=== PATIENT | female | born 1930 | race Caucasian/White ===

== ENCOUNTER 2017-05-13 21:50 | Emergency (ER) | payer BC ==
[~2017-05-13 21:50] MED LIST: ASPEC81 PO; DILT120C50 PO; LEVO-459 PO; LEVO75TA PO; LNX125 PO; LSX40 PO; METO25TA56 PO; ZCR80 PO
[2017-05-13 21:55] VITALS: TEMP 36.3; Ht 154.9 cm
[2017-05-14 00:12] LABS: BASO % 0.6 %; BASO ABS # 0.04 K/uL (0-0.2); COMPLETE YES; EOS % 1.7 %; HEMATOCRIT 33.4 % (37-47); IG% 0.3 %; LYMPH % 15.3 %; LYMPH ABS # 0.99 K/uL (1.2-3.4); MEAN CELL VOLUME 84.8 fL (80-100); MEAN CORPUSCULAR HEMOGLOBIN 25.1 pg (25-34); MEAN CORPUSCULAR HGB CONC 29.6 g/dl (32-36); MEAN PLATELET VOLUME 10.1 fL (7.4-10.4); MONO % 12.5 %; NEUT % 69.6 %; PLATELET COUNT 212 K/uL (130-400); RED BLOOD COUNT 3.94 M/uL (4.2-5.4); WHITE BLOOD COUNT 6.49 K/uL (4.8-10.8)
[2017-05-14 00:30] LABS: ALT/SGPT 26 U/L (12-78); AST/SGOT 30 U/L (15-37); BLOOD UREA NITROGEN 34 mg/dl (7-18); BUN/CREATININE RATIO 32.2 (10-20); CALCIUM 8.5 mg/dl (8.5-10.1); CARBON DIOXIDE 24 mmol/L (21-32); CHLORIDE 107 mmol/L (98-107); CREATININE 1.07 mg/dl (0.60-1.20); GLUCOSE 104 mg/dl (70-99); POTASSIUM 4.7 mmol/L (3.5-5.1); SODIUM 137 mmol/L (136-145)
[2017-05-14 00:35] LABS: ALB/GLOB RATIO 0.9 (0.9-2); ALKALINE PHOSPHATASE 78 U/L (45-117)
[2017-05-14] MEDS ORDERED: OPTIRAY 320 IV PRN (00:45)
--- NOTE | 2017-05-14 00:51 | EMERGENCY ROOM VISIT NOTE ---
History Report prepared by Vince: Stefany Schroeder Under the Supervision of: Dr. Sanjana Melton D.O. First contact with patient: 22:51 Chief Complaint: ABDOMINAL PAIN Stated Complaint: TORSO PAIN Nursing Triage Summary: per family member, "she has dementia and she is stating she cannot walk or move because both sides of her abd hurt" PT also states she fell yesterday on porch. PT O2 dependent at 2-3 liters via N/C. PT afebrile upon arrival at this time denies any nausea or vomiting. History of Present Illness The patient is a 86 year old female who presents to the Emergency Room with complaints of constant abdominal pain beginning yesterday. The patient notes that her pain worsens with movement. The patient notes having abdominal pain like this two weeks ago. She reports chronic chest pain and shortness of breath from mitral regurgitation. She follows up with a miller head assistant wet process and was last seen by him a week ago. The patient has a history of dementia and she lives with her son. The patient's son denies any acute decline in the patient's mental status. Pt denies headache, change in vision, fevers, nausea, vomiting, diarrhea, pain with urination, and melena. Source of History: patient Onset: yesterday Position: abdomen Timing: constant Modifying Factors (Worsening): movement Associated Symptoms: + chest pain, + SOB, + abdominal pain, No fevers, No headache, No nausea, No vomiting, No diarrhea, No urinary symptoms Review of Systems See HPI for pertinent positives & negatives. A total of 10 systems reviewed and were otherwise negative. Past Medical & Surgical Medical Problems: (1) Afib (2) Atrial fibrillation with RVR (3) Breast cancer (4) CHF (congestive heart failure) (5) HLD (hyperlipidemia) (6) HTN (hypertension) (7) Hypokalemia (8) Premature beats (9) Pulmonary hypertension (10) Syncope (11) Valvular disease Surgical Problems: (1) H/O mastectomy Family History No pertinent family history Social History Smoking Status: Never Smoker Alcohol Use: none Marital Status: Occupation Status: retired Current/Historical Medications Scheduled Aspirin (Aspirin EC Low Dose), 81 MG PO QAM Digoxin (Digoxin), 0.125 MG PO Q2D Diltiazem HCl (Diltiazem Cd), 120 MG PO QAM Furosemide (Furosemide), 40 MG PO BID17 Levofloxacin (Levaquin), 500 MG PO DAILY Levothyroxine Sodium (Synthroid), 75 MCG PO DAILY Metoprolol Tartrate (Lopressor) (Lopressor), 25 MG PO BID Simvastatin (Simvastatin), 20 MG PO HS Allergies Coded Allergies: No Known Allergies (Unverified , 11/02/15) Physical Exam Vital Signs Date Time Temp Pulse Resp B/P (MAP) Pulse Ox O2 Delivery O2 Flow Rate FiO2 05/14/17 02:47 84 16 137/76 95 05/14/17 02:00 81 16 130/76 95 Nasal Cannula 2.0 05/13/17 23:55 84 16 140/78 96 Nasal Cannula 2.0 05/13/17 23:29 88 05/13/17 22:46 83 05/13/17 21:55 36.3 71 18 145/76 96 Nasal Cannula 3.0 Physical Exam GENERAL: alert, well appearing, pleasantly demented, well nourished, no distress , non-toxic EYE EXAM: normal conjunctiva, PERRL and EOM's grossly intact OROPHARYNX: no exudate, no erythema, lips, buccal mucosa, and tongue normal and mucous membranes are moist NECK: supple, no nuchal rigidity, no adenopathy, non-tender LUNGS: Clear to auscultation. Normal chest wall mechanics HEART: no murmurs, S1 normal and S2 normal ABDOMEN: LUQ pain with paplation but otherwise abdomen is soft, non-tender, normo-active bowel sounds, no masses, no rebound or guarding. BACK: Back is symmetrical on inspection and there is no deformity, no midline tenderness, no CVA tenderness. SKIN: no rashes and no bruising UPPER EXTREMITIES: upper extremities are grossly normal. LOWER EXTREMITIES: No pitting edema. NEURO EXAM: Normal sensorium, cranial nerves II-XII grossly intact, normal speech, no gross weakness of arms, no gross weakness of legs. Medical Decision & Procedures ER Provider Diagnostic Interpretation: Chest X-ray interpreted to me: no cardiomegaly, small right pleural effusion, no wide mediastinum, no focal infiltrate unchanged from prior. Radiology results have been interpreted by the radiologist and reviewed by me. 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 SMA is opacified distally, likely via collaterals. No evidence of bowel ischemia. Lobulated mass in the posterior urinary bladder, suspicious for bladder neoplasm or less likely blood products. Recommend cystoscopy for further evaluation. Largest component measures approximately 2.5 cm abutting the posterior right wall. Cholelithiasis. Several subcentimeter hyperdensities in the kidneys are too small to characterize but likely cysts. Colonic diverticulosis without evidence of diverticulitis. Appendix is not seen. No right lower quadrant inflammatory changes to suggest appendicitis. Uterus surgically absent. Cardiomegaly. Scattered bibasilar atelectasis. Radiologist: Matt Duran MD. Laboratory Results 05/14/17 00:05 Red Blood Count 3.94, Mean Corpuscular Volume 84.8, Mean Corpuscular Hemoglobin 25.1, Mean Corpuscular Hemoglobin Concent 29.6, Mean Platelet Volume 10.1, Neutrophils (%) (Auto) 69.6, Lymphocytes (%) (Auto) 15.3, Monocytes (%) (Auto) 12.5, Eosinophils (%) (Auto) 1.7, Basophils (%) (Auto) 0.6, Neutrophils # (Auto ) 4.52, Lymphocytes # (Auto) 0.99, Monocytes # (Auto) 0.81, Eosinophils # (Auto ) 0.11, Basophils # (Auto) 0.04 05/14/17 00:05 Test 05/14/17 00:05 White Blood Count 6.49 K/uL (4.8-10.8) Red Blood Count 3.94 M/uL (4.2-5.4) Hemoglobin 9.9 g/dL (12.0-16.0) Hematocrit 33.4 % (37-47) Mean Corpuscular Volume 84.8 fL (80-100) Mean Corpuscular Hemoglobin 25.1 pg (25-34) Mean Corpuscular Hemoglobin Concent 29.6 g/dl (32-36) Platelet Count 212 K/uL (130-400) Mean Platelet Volume 10.1 fL (7.4-10.4) Neutrophils (%) (Auto) 69.6 % Lymphocytes (%) (Auto) 15.3 % Monocytes (%) (Auto) 12.5 % Eosinophils (%) (Auto) 1.7 % Basophils (%) (Auto) 0.6 % Neutrophils # (Auto) 4.52 K/uL (1.4-6.5) Lymphocytes # (Auto) 0.99 K/uL (1.2-3.4) Monocytes # (Auto) 0.81 K/uL (0.11-0.59) Eosinophils # (Auto) 0.11 K/uL (0-0.5) Basophils # (Auto) 0.04 K/uL (0-0.2) RDW Standard Deviation 57.9 fL (36.4-46.3) RDW Coefficient of Variation 18.9 % (11.5-14.5) Immature Granulocyte % (Auto) 0.3 % Immature Granulocyte # (Auto) 0.02 K/uL (0.00-0.02) Anion Gap 6.0 mmol/L (3-11) Estimated GFR () 54.4 Estimated GFR (Non- 47.0 BUN/Creatinine Ratio 32.2 (10-20) Lactic Acid Level 1.1 mmol/L (0.4-2.0) Calcium Level 8.5 mg/dl (8.5-10.1) Total Bilirubin 0.4 mg/dl (0.2-1) Aspartate Amino Transf (AST/SGOT) 30 U/L (15-37) Alanine Aminotransferase (ALT/SGPT) 26 U/L (12-78) Alkaline Phosphatase 78 U/L (45-117) Troponin I 0.038 ng/ml (0-0.045) Total Protein 6.3 gm/dl (6.4-8.2) Albumin 2.9 gm/dl (3.4-5.0) Globulin 3.4 gm/dl (2.5-4.0) Albumin/Globulin Ratio 0.9 (0.9-2) Lipase 320 U/L (73-393) Laboratory results per my review. Medications Administered Medications (Trade) Dose Ordered Sig/Mariah Route Start Time Stop Time Status Last Admin Dose Admin Acetaminophen (Tylenol Tab) 650 mg NOW STAT PO 05/14/17 01:50 05/14/17 01:52 DC 05/14/17 02:01 650 MG ECG Indication: chest pain Rate (beats per minute): 82 Rhythm: atrial fibrillation Findings: PVC, T-wave inversion (Lateral) Comparison ECG Date: Repeat EKG: A fib 81 bpm, no ectopy, no PVC, t-wave inversion laterally ED Course 2300: The patient was evaluated in room A10. A complete history and physical exam was performed. 0145: I discussed the patient's test results with the family. I advised them to follow up with PCP and monitor bleeding. I also advised the patient to follow up urologist for cystoscopy. 0150: Ordered Tylenol Tab 650 mg PO. 0234: Upon reevaluation, the patient is feeling better. I discussed the findings and the treatment plan with the patient. She verbalizes agreement and understanding. The patient was discharged home. Medical Decision Differential diagnosis: Etiologies such as appendicitis, diverticulitis, PUD, biliary pathology, UTI, pancreatitis, obstruction, mesenteric ischemia, aortic pathology, infections, inflammatory bowel disease, renal colic, as well as others were entertained. Patient with chronic intermittent pain per her description of the patient's really demented area patient's son states he was unaware of this until recently. Discussed with them findings noted on CAT scan, patient's anemia compared to prior lab values, patient's complaint of hematuria. According to son patient previously on hospice, but was then discharged from this. Patient states she has been having intermittent hematuria. Patient not on anticoagulation at this time, although the persistence of this could contribute to her anemia. Patient not orthostatic or symptomatic from this. Unclear etiology of left upper quadrant pain. Severe narrowing at SMA likely chronic, and collaterals noted. Pain improved following administration of Tylenol. Discussed with son need for urology evaluation given findings on CAT scan. During discussion he stated he was unsure if they would pursue any additional or aggressive intervention given her advanced age, comorbidities, and dementia. He is comfortable taking the patient home and following up as an outpatient. Discussed symptoms to watch and return for, use of routine medications, continue monitoring for any changes, he verbalized understanding was agreeable with plan. Medication Reconcilliation Current Medication List: was personally reviewed by me Blood Pressure Screening Patient's blood pressure: Elevated blood pressure Blood pressure disposition: Elevated BP felt to be situational Impression Primary Impression: Left upper quadrant pain Additional Impressions: Anemia Hematuria Scribe Attestation The scribe's documentation has been prepared under my direction and personally reviewed by me in its entirety. I confirm that the note above accurately reflects all work, treatment, procedures, and medical decision making performed by me. Departure Information Dispostion Home / Self-Care Referrals Shamir Prince D.O. (PCP) Forms HOME CARE DOCUMENTATION FORM, IMPORTANT VISIT INFORMATION Patient Instructions My [facility] Additional Instructions Please continue your regular medications as prescribed. Please follow up with your family doctor to recheck your red blood cell counts as they were lower tonight than what they have previously been. Please call and follow-up with a urologist as soon as possible regarding blood you have noticed in your urine. The CAT scan did show an abnormality down at your bladder which may require an additional procedure to further investigate. The blood in your urine may be the reason for your low red blood cell counts. If you develop dizziness, chest pain, trouble breathing, noticed blood from any other site, or have any other new and concerning symptoms, please return to the emergency room. Problem Qualifiers Additional Impressions: Anemia Anemia type: unspecified type Qualified Codes: D64.9 - Anemia, unspecified Hematuria Hematuria type: unspecified type Qualified Codes: R31.9 - Hematuria, unspecified
[2017-05-14] MEDS ORDERED: ACETAMINOPHEN 325 MG TAB PO STA (01:50)
[2017-05-14 02:47] VITALS: BP 137/76; PULSE 84; O2SAT 95
--- NOTE | 2017-05-14 06:47 | DIAGNOSTIC IMAGING REPORT ---
CHEST 2 VIEWS ROUTINE HISTORY: 86 years-old Female chest pain acute atypical chest pain COMPARISON: Portable chest radiograph 11/07/2015 TECHNIQUE: PA and lateral views of the chest FINDINGS: Cardiac silhouette is again moderately enlarged. Atherosclerosis of the aorta. No pneumothorax. There are trace bilateral pleural effusions which have slightly decreased in size from comparison. Pulmonary vascular congestion is redemonstrated with improved pulmonary edema. Hazy right greater the left bibasilar opacities persist. Bones appear grossly intact. Advanced degenerative changes of the shoulders. IMPRESSION: 1. Cardiomegaly with improved pulmonary edema. 2. Decreased size of the trace pleural effusions with persistent bibasilar opacities suggesting atelectasis or pneumonia. The above report was generated using voice recognition software. It may contain grammatical, syntax or spelling errors. Electronically signed by: Kwesi Ko M.D. 05/14/2017 6:46 AM Dictated Date/Time: 05/14/2017 6:44 AM
--- NOTE | 2017-05-14 06:54 | DIAGNOSTIC IMAGING REPORT ---
ABD/PELVIS IV CONTRAST ONLY CT DOSE: 244.48 mGy.cm HISTORY: Pain luq pain TECHNIQUE: Multiaxial CT images of the abdomen and pelvis were performed following the use of intravenous contrast. A dose lowering technique was utilized adhering to the principles of ALARA. COMPARISON STUDY: None. FINDINGS: Lung bases show diffuse fibrotic and pleural reactive change bilaterally. Slight liver heterogeneity. No major space-occupying lesion. Potential debris within the deep and gallbladder. Findings replacement of the pancreas. Moderate cortical scarring of the kidneys. No evidence for hydronephrosis. Severe atherosclerotic change celiac axis and superior mesenteric artery. Nonobstructive bowel pattern. Scattered colonic diverticulosis. Slightly hyperdense 2.2 x 1.3 cm hematoma versus mass process posterior right lateral bladder. Cystoscopy is suggested. Degenerative changes of the osseous structures throughout. Atherosclerotic change and ectasia abdominal aorta. IMPRESSION: 1. Bibasilar pleural reactive and parenchymal fibrotic change. 2. Gallstones/debris within the gallbladder lumen. 3. Scattered colonic diverticulosis. No evidence of diverticulitis. 4. Probable atherosclerotic change and narrowing superior mesenteric artery and to a somewhat lesser extent celiac axis. 5. Bladder mass versus hematoma posterior bladder wall. Cystoscopy is suggested. The above report was generated using voice recognition software. It may contain grammatical, syntax or spelling errors. Electronically signed by: Josue Villafuerte M.D. 05/14/2017 6:53 AM Dictated Date/Time: 05/14/2017 6:48 AM
== END 2017-05-14 02:48 | disposition home or self-care (01) ==
LOC: C.EDB 21:51 → C.EDA 05-14 02:48
DX: R10.12 Left upper quadrant pain (principal); D64.9 Anemia, unspecified; R31.9 Hematuria, unspecified; I48.91 Unspecified atrial fibrillation; I50.9 Heart failure, unspecified; E78.5 Hyperlipidemia, unspecified; I10 Essential (primary) hypertension; E87.6 Hypokalemia; R55 Syncope and collapse; I38 Endocarditis, valve unspecified; Z79.82 Long term (current) use of aspirin